=== PATIENT | male | born 1970 | race Caucasian/White ===

== ENCOUNTER 2019-02-08 09:46 | Emergency (ER) | payer SELFPAY ==
[2019-02-08] MEDS ORDERED: Ketorolac INJ* 60 MG/2 ML VIAL IM ONE (11:43)
[2019-02-08] MEDS ORDERED: Bupivacaine 0.5% W/EPI SDV* 30 ML VIAL INJ ONE (11:43)
--- NOTE | 2019-02-08 11:50 | ED ---
Back Pain - HPI Summary HPI Summary: Pt is 48 y/o male with hx of chronic left-sided low back pain presenting with right-sided low back pain intermittently radiating to right buttocks and lateral right thigh as/p fall on 4-6 stairs 2 days ago. States his pain worsens with movement and standing, but is better with sitting. He has intermittent paresthesias of lateral right thigh, denies numbness and weakness of lower extremities. Smokes 3/4 PPD and is interested in quitting. No other complaints at this time. - History of Current Complaint Chief Complaint: EDBackInjuryPain Stated Complaint: LOWER BACK PAIN, LEG PAIN Time Seen by Provider: 02/08/19 11:22 Hx Obtained From: Patient Onset/Duration: Sudden Onset Onset/Duration: Started Days Ago Timing: Constant Back Pain Location: Radiates To - right buttocks and right lateral thigh Severity Initially: Moderate Severity Currently: Moderate Pain Intensity: 8 Pain Scale Used: 0-10 Numeric Character: Sharp Aggravating Symptom(s): Movement, Walking Alleviating Symptom(s): Rest, Position, OTC Meds Associated Signs And Symptoms: Positive: Tingling. Negative: Swelling, Redness , Bruising, Weakness, Numbness - Allergies/Home Medications Allergies/Adverse Reactions: Allergies Allergy/AdvReac Type Severity Reaction Status Date / Time No Known Allergies Allergy Verified 02/08/19 09:56 Home Medications: Home Medications Ibuprofen 400 mg PO Q6H PRN 02/08/19 [History Confirmed 02/08/19] PMH/Surg Hx/FS Hx/Imm Hx Musculoskeletal History: Reports: Hx Back Problems - Chronic left-sided low back pain. Infectious Disease History: No Infectious Disease History: Denies: Traveled Outside the [place] in Last 30 Days - Social History Alcohol Use: Occasionally Substance Use Type: Reports: None Hx Tobacco Use: Yes Smoking Status (MU): Current Every Day Smoker Type: Cigarettes Amount Used/How Often: 3/4 packs per day Cessation Counseling: Patient Advised to Stop Review of Systems Negative: Fever Negative: Chest Pain Negative: Shortness Of Breath Positive: Myalgia - Right-sided low back pain, radiates to right buttocks and lateral right thigh Positive: Paresthesia. Negative: Weakness, Numbness All Other Systems Reviewed And Are Negative: Yes Physical Exam Triage Information Reviewed: Yes Vital Signs On Initial Exam: Initial Vitals Temp Pulse Resp BP Pulse Ox 98.8 F 92 18 138/96 98 02/08/19 09:53 02/08/19 09:53 02/08/19 09:53 02/08/19 09:53 02/08/19 09:53 Vital Signs Reviewed: Yes Appearance: Positive: Well-Appearing, Pain Distress - Moderate distress with movement. Skin: Positive: Warm, Skin Color Reflects Adequate Perfusion, Dry Head/Face: Positive: Normal Head/Face Inspection Eyes: Positive: Normal, EOMI ENT: Positive: Normal ENT inspection Respiratory/Lung Sounds: Positive: Clear to Auscultation. Negative: Rales, Rhonchi, Wheezes Cardiovascular: Positive: RRR. Negative: Murmur, Rub Abdomen Description: Negative: Distended Musculoskeletal: Positive: Other - No bruising, erythema, or swelling of back. No vertebral tenderness. Right lumbar paraspinal tenderness with palpation and palpable spasm. ROM limited due to pain. NV intact distally. Patellar and Achilles DTR 2+ bilaterally. Neurological: Positive: Normal, Alert, Oriented to Person Place, Time Psychiatric: Positive: Normal Procedures - Procedure Summary Procedure Summary: Procedure: Trigger point injection, 15 ml 0.5% bupivocaine with epinephrine injected in to right lumbar paraspinal muscles and divided aliquots. Performed by Dr. Catherine and by BRAULIO Moreira Student, with direct supervision of Dr. Catherine. Patient tolerated well. No complications. Medication massaged thru tissues and relieved discomfort. Diagnostics - Vital Signs Vital Signs Temp Pulse Resp BP Pulse Ox 02/08/19 09:53 98.8 F 92 18 138/96 98 - Laboratory Lab Statement: Any lab studies that have been ordered have been reviewed, and results considered in the medical decision making process. Back Pain Course/Dx - Course Course Of Treatment: 48 y/o male with obvious right paraspinal lumbar muscle spasm after fall 3 days ago. IM injection with bupivocaine provided symptomatic relief for pt. discharged with short course of prednisone for inflammation. Pt to f/u with PCP. - Diagnoses Differential Diagnosis/HQI/PQRI: Positive: Herniated Disc, Strain, Other - muscle spasm Provider Diagnoses: Acute lumbar myofascial strain Discharge - Sign-Out/Discharge Documenting (check all that apply): Patient Departure Patient Received Moderate/Deep Sedation with Procedure: No - Discharge Plan Condition: Improved Disposition: HOME Prescriptions: Cyclobenzaprine TAB* [Flexeril 10 MG TAB*] 10 mg PO BEDTIME PRN #5 tab PRN Reason: muscle pain Naproxen [Naproxen 500 mg tab] 500 mg PO BID PRN #10 tablet PRN Reason: Pain predniSONE TAB* [Deltasone TAB*] 50 mg PO DAILY #3 tab Patient Education Materials: Low Back Strain (ED), Lower Back Exercises (ED) Forms: *Work Release Referrals: [facility] [Outside] [facility] [place] [facility] [Outside] Additional Instructions: Ice, range of motion and stretching exercises. day care supervisor may help. Return with difficulty with bowel or bladder, numbness/weakness, worse, new symptoms or other concerns. - Billing Disposition and Condition Condition: IMPROVED Disposition: Home - Attestation Statements Document Initiated by Nicolas: Yes Documenting Scribe: SERGIO Moreira Provider For Whom Nicolas is Documenting (Include Credential): Dr. Catherine Scribe Attestation: Summer Doherty PA-S, scribed for Dr. Catherine on 02/08/19 at 1837. Scribe Documentation Reviewed: Yes Provider Attestation: The documentation as recorded by the Summer valle PA-S accurately reflects the service I personally performed and the decisions made by Dr. Florin ramirez Status of Scribe Document: Viewed
[2019-02-08 12:32] VITALS: BP 133/76
== END 2019-02-08 12:28 | disposition home or self-care (01) ==
LOC: ED 09:46
DX: S39.012A Strain of muscle, fascia and tendon of lower back, initial encounter (principal); W10.9XXA Fall (on) (from) unspecified stairs and steps, initial encounter; Y92.9 Unspecified place or not applicable; M54.5 Low back pain; F17.210 Nicotine dependence, cigarettes, uncomplicated; R20.2 Paresthesia of skin
CPT/HCPCS: 96365; 96372; 99282; J1885